=== PATIENT | female | born 1935 | race Caucasian/White ===

== ENCOUNTER 2020-05-29 00:45 | Emergency (ER) | payer MEDICARE, OTHER ==
[~2020-05-29 00:45] MED LIST: ARICEPT10 MG PO; ASPIRIN81 MG PO; CITALOPRAM HBR20 MG PO; COZAAR100 MG PO; DESYREL 50 MG T50 MG PO; FERROUS SULFAT325 M2 PO; NORVASC 5 MG TAB5 MG PO; OMNICEF 300 MG300 MG PO; SEROQUEL TAB 2525 MG PO; VITAMIN D5000 UNIT PO
[2020-05-29 01:18] LABS: HEMOGLOBIN 13.4 gm/dl (12.3-15.3); RED BLOOD COUNT 5.33 M/UL (4.00-5.10); WHITE BLOOD COUNT 6.1 K/UL (4.5-11.0)
[2020-05-29] MEDS ORDERED: CEFUROXIME500 MG PO (02:28)
== END 2020-05-29 08:45 | disposition home or self-care (01) ==
LOC: ER1 00:45
PROVIDERS: Preventive Medicine Occupational Medicine
DX: N39.0 Urinary tract infection, site not specified (principal); I10 Essential (primary) hypertension; I25.10 Atherosclerotic heart disease of native coronary artery without angina pectoris
CPT/HCPCS: 71045; 80053; 81001; 82550; 82553; 83874; 84484; 85025; 87086; 93005; 96365; 99284; J0696